=== PATIENT | male | born 1940 | race Caucasian/White ===

== ENCOUNTER 2025-06-07 17:45 | Inpatient (IN) | payer MEDICARE, OTHER ==
[~2025-06-07] VITALS: Ht 170.2 cm; Wt 75.7 kg
[2025-06-07] MEDS ORDERED: CRAN425C6 PO (18:40)
[2025-06-07] MEDS ORDERED: DABI150C PO (18:40)
[2025-06-07] MEDS ORDERED: DOCU100C36 PO (18:40)
[2025-06-07] MEDS ORDERED: DIVA125C5 PO (18:40)
[2025-06-07] MEDS ORDERED: FLUT16SP BNOSTRILS (18:40)
[2025-06-07] MEDS ORDERED: BISA10SU11 RC (18:40)
[2025-06-07] MEDS ORDERED: SENN-261 PO ×2 (18:40)
[2025-06-07] MEDS ORDERED: MULT-213 PO (18:40)
[2025-06-07] MEDS ORDERED: MAGN400O6 PO (18:40)
[2025-06-07] MEDS ORDERED: FURO20TA4 PO (18:40)
[2025-06-07] MEDS ORDERED: CHOL100062 PO (18:40)
[2025-06-07] MEDS ORDERED: INSU100V7 SQ (18:40)
[2025-06-07] MEDS ORDERED: POLY119P2 PO (18:40)
[2025-06-07] MEDS ORDERED: ACET325T53 PO (18:40)
[2025-06-07] MEDS ORDERED: INSU100V39 SQ ×2 (18:40)
[2025-06-07] MEDS ORDERED: METO25TA6 PO (18:40)
[2025-06-07] MEDS ORDERED: NA P133E RC (18:40)
[2025-06-07] MEDS ORDERED: ATOR80TA PO (18:40)
[2025-06-07] MEDS ORDERED: QUET25TA PO (18:40)
[2025-06-07] MEDS ORDERED: ASCO500T20 PO (18:40)
[2025-06-07 19:04] LABS: PLATELET COUNT (AUTO) 194 K/uL (150-450); RED BLOOD CELL COUNT(AUTO) 3.81 MIL/uL (4.5-6.0); RED CELL DISTRIBUTION WIDTH 16.3 % (11.5-15.0); WHITE BLOOD COUNT (AUTO) 8.4 K/uL (4.3-11.0)
[2025-06-07 19:19] LABS: CALCIUM, SERUM 9.6 mg/dL (8.5-10.1); CREATININE 1.3 mg/dL (0.6-1.3); SODIUM SERUM 142 mmol/L (136-145); UREA NITROGEN, BLOOD 32 mg/dL (7-18)
[2025-06-07 19:21] LABS: ASPARTATE AMINOTRANSFERASE 17 U/L (15-37); TOTAL PROTEIN, SERUM 7.1 g/dL (6.4-8.2)
[2025-06-07 19:22] LABS: ALCOHOL, BLOOD < 3 mg/dL (0-10)
[2025-06-07 19:45] LABS: APPEARANCE,URINE CLOUDY (CLEAR); BLOOD, URINE 1+ Ery/uL (NEGATIVE); LEUKOCYTE ESTERASE ,URINE 2+ (NEGATIVE); NITRITE, URINE POSITIVE (NEGATIVE); UGLUCOSE TRACE mg/dL (NEGATIVE)
[2025-06-07] MEDS: IV NS 0.9% 1,000 ML BAG IV ONE (19:49)
[2025-06-07 20:00] LABS: AMPHETAMINE, URINE NEGATIVE (NEGATIVE); BARBITURATE, URINE NEGATIVE (NEGATIVE); BENZODIAZEPINE, URINE NEGATIVE (NEGATIVE); CANNABINOID, URINE NEGATIVE (NEGATIVE); COCCAINE, URINE NEGATIVE (NEGATIVE); OPIATE, URINE NEGATIVE (NEGATIVE)
[2025-06-07 20:04] LABS: ADD URINE CULTURE YES; SQUAMOUS EPITHELIAL CELL,UR 0-2 /HPF (None Seen)
[2025-06-07] MEDS: CEFTRIAXONE 1GM BAG (ER ONLY) 1 GM/50 ML PIGGYBACK IV ONE (20:30)
[2025-06-07] MEDS ORDERED: CEFTRIAXONE 1 G VIAL ONE (20:55)
[2025-06-07 21:30] VITALS: BP 124/97; TEMP 97.5; O2SAT 98
[2025-06-07] MEDS ORDERED: ACETAMINOPHEN 325 MG TABLET PO PRN ×2 (21:30)
[2025-06-07] MEDS ORDERED: ONDANSETRON HCL/PF 4 MG/2 ML VIAL IVP PRN (21:30)
[2025-06-07] MEDS ORDERED: BISACODYL SUPP (10 MG) 10 MG/SUPP.RECT SUPP.RECT RC PRN (21:30)
[2025-06-07] MEDS ORDERED: MAGNESIUM HYDROXIDE 30 ML UDC PO PRN ×2 (21:30)
[2025-06-07] MEDS ORDERED: SENNOSIDES 8.6 MG TABLET PO PRN (21:30)
[2025-06-07] MEDS ORDERED: NA PHOS,M-B/NA PHOS,DI-BA 1 EA ENEMA RC PRN (21:30)
[2025-06-07] MEDS ORDERED: DEXTROSE 50%-WATER 50 ML DISP.SYRIN IV PRN (21:30)
[2025-06-07] MEDS ORDERED: ENOXAPARIN SODIUM 40 MG/0.4 ML DISP.SYRIN SQ SCH (21:30)
[2025-06-07] MEDS ORDERED: MAG HYDROX/AL HYDROX/SIMETH 30 ML UDC PO PRN (21:30)
[2025-06-07 21:45] VITALS: BP 124/97; TEMP 97.5; O2SAT 98
[2025-06-07] MEDS: ATORVASTATIN 40 MG TABLET PO SCH (22:18)
[2025-06-07] MEDS: SENNOSIDES 8.6 MG TABLET PO SCH (22:20)
[2025-06-07] MEDS: IV NS 0.9% 1,000 ML IV PRN (22:21)
[2025-06-07] MEDS: BLOOD SUGAR DIAGNOSTIC 1 EACH STRIP IN SCH (22:28)
[2025-06-07] MEDS ORDERED: POLYETHYLENE GLYCOL 3350 17 GM POWD.PACK PO PRN (22:30)
[2025-06-07] MEDS: INSULIN REGULAR, HUMAN 100 UNIT/ML 3 ML VIAL SQ PRN (23:05)
[2025-06-08] MEDS: DIVALPROEX SODIUM 125 MG CAP.SPRINK PO SCH (00:10)
[2025-06-08 07:52] LABS: PLATELET COUNT (AUTO) 169 K/uL (150-450); RED BLOOD CELL COUNT(AUTO) 3.65 MIL/uL (4.5-6.0); RED CELL DISTRIBUTION WIDTH 16.1 % (11.5-15.0); WHITE BLOOD COUNT (AUTO) 7.7 K/uL (4.3-11.0)
[2025-06-08 08:00] VITALS: BP 137/72; TEMP 97; O2SAT 100
[2025-06-08] MEDS: CHOLECALCIFEROL 1,000 UNIT TABLET (VIT D3) PO SCH (08:25)
[2025-06-08] MEDS: INSULIN LISPRO/ASPART 100 UNIT/ML CARTRIDGE SQ SCH (08:25)
[2025-06-08] MEDS: ASCORBIC ACID 500 MG TABLET PO SCH (08:25)
[2025-06-08] MEDS: QUETIAPINE FUMARATE 25 MG TABLET PO SCH ×2 (08:25→12:04)
[2025-06-08] MEDS: DOCUSATE SODIUM 100 MG CAPSULE PO SCH (08:25)
[2025-06-08] MEDS: PANTOPRAZOLE 40 MG TABLET.DR PO SCH (08:25)
[2025-06-08] MEDS: FUROSEMIDE 20 MG TABLET PO SCH (08:25)
[2025-06-08] MEDS: METOPROLOL TARTRATE 25 MG TABLET PO SCH (08:25)
[2025-06-08 08:26] LABS: CALCIUM, SERUM 9.3 mg/dL (8.5-10.1); CREATININE 0.9 mg/dL (0.6-1.3); PHOSPHORUS 3.3 mg/dL (2.5-4.9); SODIUM SERUM 141.0 mmol/L (136-145); UREA NITROGEN, BLOOD 27.0 mg/dL (7-18)
[2025-06-08] MEDS: MULTIVITAMINS,THERAGRAN 1 UDTAB TABLET PO SCH (08:26)
[2025-06-08] MEDS ORDERED: DABIGATRAN ETEXILATE MESYLATE 150 MG CAPSULE PO SCH (09:00)
[2025-06-08] MEDS: FLUTICASONE PROPIONATE 16 GM BOTTLE NS SCH (10:29)
[2025-06-08] MEDS: DABIGATRAN ETEXILATE MESYLATE 75 MG CAPSULE PO SCH (10:30)
[2025-06-08] MEDS ORDERED: LORAZEPAM 1 MG TABLET PO PRN (11:00)
[2025-06-08] MEDS ORDERED: OLANZAPINE 10 MG VIAL IM PRN (11:00)
[2025-06-08 16:00] VITALS: BP 117/52; TEMP 97.7; O2SAT 99
[2025-06-08 20:00] VITALS: BP 113/48; TEMP 98; O2SAT 98
[2025-06-08] MEDS: CEFTRIAXONE 1 G in IV D5W 50 ML IV SCH (21:45)
[2025-06-08] MEDS: INSULIN GLARGINE, 100 UNIT/ML CARTRIDGE SQ SCH (22:14)
[2025-06-09 07:15] LABS: CALCIUM, SERUM 9.7 mg/dL (8.5-10.1); CREATININE 1.0 mg/dL (0.6-1.3); SODIUM SERUM 142.0 mmol/L (136-145); UREA NITROGEN, BLOOD 21.0 mg/dL (7-18)
[2025-06-09 08:00] VITALS: BP 115/54; TEMP 97.9; O2SAT 97
[2025-06-09 16:00] VITALS: BP 108/52; TEMP 97.9; O2SAT 97
[2025-06-09 20:00] VITALS: BP 107/54; TEMP 97.7; O2SAT 98
[2025-06-10 08:00] VITALS: BP 117/56; TEMP 97.9; O2SAT 100
[2025-06-10 10:06] VITALS: BP 117/56
[2025-06-10] MEDS ORDERED: OLAN10VI IM (17:20)
[2025-06-10] MEDS ORDERED: LORA-259 PO (17:20)
[2025-06-10] MEDS ORDERED: MAG-135 PO (17:20)
[2025-06-10] MEDS ORDERED: DIVA-78 PO (17:20)
[2025-06-10] MEDS ORDERED: CEPH-570 PO (17:20)
[2025-06-10] MEDS ORDERED: DEXT50DI8 IV (17:20)
[2025-06-10] MEDS ORDERED: BLOO-668 IN (17:20)
[2025-06-10] MEDS ORDERED: INSU100V3 SQ (17:20)
[2025-06-10] MEDS ORDERED: ONDA4VIA52 IVP (17:20)
[2025-06-10] MEDS ORDERED: PANT40TA49 PO (17:20)
== END 2025-06-10 15:27 | DRG 689 ==
LOC: ER 18:00 → MED 20:57
PROVIDERS: ADMIT Nurse Practitioner Family; ATTEND Nurse Practitioner Family
DX: N39.0 Urinary tract infection, site not specified (principal); G93.41 Metabolic encephalopathy; E44.1 Mild protein-calorie malnutrition; D63.8 Anemia in other chronic diseases classified elsewhere; E88.09 Other disorders of plasma-protein metabolism, not elsewhere classified; N17.9 Acute kidney failure, unspecified; B96.4 Proteus (mirabilis) (morganii) as the cause of diseases classified elsewhere; F03.93 Unspecified dementia, unspecified severity, with mood disturbance; E11.9 Type 2 diabetes mellitus without complications; I10 Essential (primary) hypertension; F10.11 Alcohol abuse, in remission; F03.94 Unspecified dementia, unspecified severity, with anxiety; E86.0 Dehydration; H91.13 Presbycusis, bilateral; H91.93 Unspecified hearing loss, bilateral; Z79.4 Long term (current) use of insulin; Z79.899 Other long term (current) drug therapy; I25.10 Atherosclerotic heart disease of native coronary artery without angina pectoris; E78.5 Hyperlipidemia, unspecified; R79.89 Other specified abnormal findings of blood chemistry
CPT/HCPCS: 36415; 71045-TC; 80048-TC; 80076-TC; 80164-TC; 81001; 82962-TC; 83735-TC; 84100-TC; 85025-TC; 87081-TC; 87086-TC; 87186-TC; A4223; G0378; G0480; J0696; J1815; J7030; J7060

== ENCOUNTER 2025-06-10 15:15 | Inpatient (IN) | payer MEDICARE, OTHER ==
[~2025-06-10] VITALS: Ht 172.7 cm; Wt 72.6 kg
[~2025-06-10 15:15] MED LIST: ACET325T53 PO; ASCO500T20 PO; ATOR80TA PO; BISA10SU11 RC; CHOL100062 PO; CRAN425C6 PO; DABI150C PO; DIVA125C5 PO; DOCU100C36 PO; FLUT16SP BNOSTRILS; FURO20TA4 PO; INSU100V39 SQ; INSU100V7 SQ; MAGN400O6 PO; METO25TA6 PO; MULT-213 PO; NA P133E RC; POLY119P2 PO; QUET25TA PO; SENN-261 PO
[2025-06-10 16:00] VITALS: BP 113/59; TEMP 98; O2SAT 100
[2025-06-10 17:18] VITALS: BP 113/59; TEMP 98; O2SAT 100
[2025-06-10] MEDS ORDERED: BLOO-668 IN (17:20)
[2025-06-10] MEDS ORDERED: MAG-135 PO (17:20)
[2025-06-10] MEDS ORDERED: PANT40TA49 PO (17:20)
[2025-06-10] MEDS ORDERED: INSU100V3 SQ (17:20)
[2025-06-10] MEDS ORDERED: CEPH-570 PO (17:20)
[2025-06-10] MEDS ORDERED: LORA-259 PO (17:20)
[2025-06-10] MEDS ORDERED: DIVA-78 PO (17:20)
[2025-06-10] MEDS ORDERED: OLAN10VI IM (17:20)
[2025-06-10] MEDS ORDERED: DEXT50DI8 IV (17:20)
[2025-06-10] MEDS ORDERED: ONDA4VIA52 IVP (17:20)
[2025-06-10] MEDS ORDERED: MAGNESIUM HYDROXIDE 30 ML UDC PO PRN (17:30)
[2025-06-10] MEDS ORDERED: LORAZEPAM 0.5 MG TABLET PO PRN (17:30)
[2025-06-10] MEDS ORDERED: MAG HYDROX/AL HYDROX/SIMETH 30 ML UDC PO PRN (17:30)
[2025-06-10] MEDS ORDERED: TEMAZEPAM 7.5 MG CAPSULE PO PRN (17:30)
[2025-06-10] MEDS ORDERED: ACETAMINOPHEN 325 MG TABLET PO PRN (17:30)
[2025-06-10] MEDS: BLOOD SUGAR DIAGNOSTIC 1 EACH STRIP IN ONE (17:50)
[2025-06-10] MEDS: INSULIN GLARGINE, 100 UNIT/ML CARTRIDGE SQ SCH (18:00)
[2025-06-10] MEDS: DIVALPROEX SODIUM 500 MG TABLET.DR PO SCH (18:00)
[2025-06-10] MEDS ORDERED: INSULIN REGULAR, HUMAN 100 UNIT/ML 3 ML VIAL SQ PRN (18:00)
[2025-06-10] MEDS ORDERED: DEXTROSE 50%-WATER 50 ML DISP.SYRIN IV PRN (18:00)
[2025-06-10 20:50] VITALS: BP 117/59; TEMP 97.7; O2SAT 100
[2025-06-10] MEDS: ATORVASTATIN 40 MG TABLET PO SCH (21:25)
[2025-06-10] MEDS: CEPHALEXIN MONOHYDRATE 500 MG CAPSULE PO SCH (21:25)
[2025-06-10] MEDS: BLOOD SUGAR DIAGNOSTIC 1 EACH STRIP IN SCH (21:32)
[2025-06-10] MEDS: *INSULIN REGULAR(HUMULIN R)HUM 100 UNIT/ML VIAL SQ PRN (21:36)
[2025-06-11 08:00] VITALS: BP 139/98; TEMP 97.7; O2SAT 100
[2025-06-11] MEDS: CHOLECALCIFEROL 1,000 UNIT TABLET (VIT D3) PO SCH (08:48)
[2025-06-11] MEDS: DOCUSATE SODIUM LIQ 100 MG/10 ML UDC PO SCH (08:49)
[2025-06-11] MEDS: METOPROLOL TARTRATE 25 MG TABLET PO SCH (08:50)
[2025-06-11] MEDS: POLYETHYLENE GLYCOL 3350 17 GM POWD.PACK PO SCH (08:50)
[2025-06-11] MEDS: DABIGATRAN ETEXILATE MESYLATE 75 MG CAPSULE PO SCH (09:36)
[2025-06-11] MEDS: OLANZAPINE 10 MG VIAL IM ONE (11:00)
[2025-06-11] MEDS ORDERED: DEXTROSE 50%-WATER 50 ML DISP.SYRIN IV PRN (11:30)
[2025-06-11] MEDS: BLOOD SUGAR DIAGNOSTIC 1 EACH STRIP IN SCH (12:10)
[2025-06-11] MEDS: DIVALPROEX SODIUM 500 MG TABLET.DR PO SCH (12:11)
[2025-06-11] MEDS: INSULIN REGULAR, HUMAN 100 UNIT/ML 3 ML VIAL SQ PRN (12:12)
[2025-06-11 16:00] VITALS: BP 146/67; TEMP 98.1; O2SAT 99
[2025-06-11] MEDS: QUETIAPINE FUMARATE 25 MG TABLET PO SCH (16:59)
[2025-06-11 17:49] LABS: PLATELET COUNT (AUTO) 187 K/uL (150-450); RED BLOOD CELL COUNT(AUTO) 3.82 MIL/uL (4.5-6.0); RED CELL DISTRIBUTION WIDTH 15.5 % (11.5-15.0); WHITE BLOOD COUNT (AUTO) 8.3 K/uL (4.3-11.0)
[2025-06-11 18:19] LABS: ASPARTATE AMINOTRANSFERASE 15.0 U/L (15-37); CALCIUM, SERUM 9.8 mg/dL (8.5-10.1); CREATININE 1.0 mg/dL (0.6-1.3); PHOSPHORUS 3.1 mg/dL (2.5-4.9); SODIUM SERUM 139.0 mmol/L (136-145); TOTAL PROTEIN, SERUM 6.9 g/dL (6.4-8.2); UREA NITROGEN, BLOOD 24.0 mg/dL (7-18)
[2025-06-11 19:05] LABS: LDL 45 mg/dL (0-99)
[2025-06-11 21:07] VITALS: BP 126/74; TEMP 98.6; O2SAT 98
[2025-06-11] MEDS: QUETIAPINE FUMARATE 100 MG TABLET PO SCH (21:19)
[2025-06-12 08:00] VITALS: BP 117/86; TEMP 98.6; O2SAT 100
[2025-06-12 16:00] VITALS: BP 103/50; TEMP 98.8; O2SAT 100
[2025-06-12 21:03] VITALS: BP 125/51; TEMP 97.9; O2SAT 97
[2025-06-13 08:00] VITALS: BP 128/67; TEMP 98.1; O2SAT 98
[2025-06-13 14:00] VITALS: BP 92/65; TEMP 98.1; O2SAT 98
[2025-06-13 16:00] VITALS: BP 128/69; TEMP 97.1; O2SAT 96
[2025-06-13] MEDS: QUETIAPINE FUMARATE 25 MG TABLET PO SCH (22:00)
[2025-06-14 08:00] VITALS: BP 125/58; TEMP 97.8; O2SAT 99
[2025-06-14] MEDS: Z GUARD REMEDY 4 OZ OINT TP SCH (09:48)
[2025-06-14] MEDS: DIVALPROEX SODIUM 125 MG CAP.SPRINK PO SCH (13:00)
[2025-06-14 16:06] VITALS: BP 111/57; TEMP 97.7; O2SAT 98
[2025-06-14 20:52] VITALS: BP 130/62; TEMP 97.8; O2SAT 98
[2025-06-15 08:00] VITALS: BP 121/60; TEMP 97.5; O2SAT 96
[2025-06-15 16:00] VITALS: BP 116/54; TEMP 97.7; O2SAT 98
[2025-06-15 21:03] VITALS: BP 114/70; TEMP 98.2; O2SAT 98
[2025-06-16 07:48] VITALS: BP 141/64; TEMP 97.8; O2SAT 99
[2025-06-16 15:40] VITALS: BP 112/59; TEMP 97.5; O2SAT 99
[2025-06-16 20:08] VITALS: BP 108/63; TEMP 97.6; O2SAT 100
[2025-06-16] MEDS: QUETIAPINE FUMARATE 100 MG TABLET PO SCH (21:10)
[2025-06-17 08:00] VITALS: BP 142/58; TEMP 97.7; O2SAT 100
[2025-06-17] MEDS: DIVALPROEX SODIUM 500 MG TABLET.DR PO SCH (12:50)
[2025-06-17 16:00] VITALS: BP 111/55; TEMP 97.8; O2SAT 99
[2025-06-17 19:58] VITALS: BP 115/57; TEMP 97.5; O2SAT 98
[2025-06-18 08:00] VITALS: BP 102/73; TEMP 97.9; O2SAT 97
[2025-06-18 16:00] VITALS: BP 122/62; TEMP 98.1; O2SAT 99
[2025-06-18 20:57] VITALS: BP 110/56; TEMP 97.6; O2SAT 99
[2025-06-19 07:53] VITALS: BP 113/66; TEMP 97.7; O2SAT 97
[2025-06-19 16:00] VITALS: BP 107/54; TEMP 98.1; O2SAT 100
[2025-06-19 20:00] VITALS: BP 117/55; TEMP 97.5; O2SAT 100
[2025-06-20 08:00] VITALS: BP 121/57; TEMP 97.9; O2SAT 97
[2025-06-20 16:00] VITALS: BP 115/50; TEMP 97.5; O2SAT 100
[2025-06-20 20:20] VITALS: BP 108/52; TEMP 97.8; O2SAT 99
[2025-06-21 08:00] VITALS: BP 128/62; TEMP 97.7; O2SAT 100
[2025-06-21 16:00] VITALS: BP 108/54; TEMP 97.5; O2SAT 100
[2025-06-21 22:03] VITALS: BP 110/55; TEMP 97.7; O2SAT 97
[2025-06-22] MEDS: GUAIFENESIN/D-METHORPHAN HB 5 ML UDC PO PRN (01:59)
[2025-06-22 07:59] VITALS: BP 121/55; TEMP 98.6; O2SAT 97
[2025-06-22 15:55] VITALS: BP 123/56; TEMP 98.8; O2SAT 99
[2025-06-22 16:35] VITALS: BP 121/60
[2025-06-22 20:24] VITALS: BP 109/50; TEMP 98.1; O2SAT 97
[2025-06-23 08:00] VITALS: BP 117/62; TEMP 97.8; O2SAT 98
[2025-06-23 16:00] VITALS: BP 117/50; TEMP 97.8; O2SAT 100
[2025-06-23 20:00] VITALS: BP 118/55; TEMP 98.1; O2SAT 99
[2025-06-23 21:32] VITALS: BP 105/68; TEMP 98; O2SAT 97
[2025-06-24 08:00] VITALS: BP 132/59; TEMP 98.1; O2SAT 100
[2025-06-24 16:00] VITALS: BP 121/49; TEMP 98; O2SAT 100
[2025-06-24 20:25] VITALS: BP 130/46; TEMP 98.2; O2SAT 99
[2025-06-25 08:00] VITALS: BP 120/60; TEMP 98.1; O2SAT 96
[2025-06-25 09:05] VITALS: BP 120/60
== END 2025-06-25 14:25 | DRG 885 ==
LOC: GPS 15:15
PROVIDERS: ADMIT Psychiatry & Neurology Psychosomatic Medicine; ATTEND Internal Medicine
DX: F20.9 Schizophrenia, unspecified (principal); N17.9 Acute kidney failure, unspecified; E11.65 Type 2 diabetes mellitus with hyperglycemia; G92.8 Other toxic encephalopathy; F03.92 Unspecified dementia, unspecified severity, with psychotic disturbance; F29 Unspecified psychosis not due to a substance or known physiological condition; D63.8 Anemia in other chronic diseases classified elsewhere; B96.4 Proteus (mirabilis) (morganii) as the cause of diseases classified elsewhere; N39.0 Urinary tract infection, site not specified; I10 Essential (primary) hypertension; F03.93 Unspecified dementia, unspecified severity, with mood disturbance; E78.5 Hyperlipidemia, unspecified; I25.10 Atherosclerotic heart disease of native coronary artery without angina pectoris; H91.13 Presbycusis, bilateral; F39 Unspecified mood [affective] disorder; Z79.4 Long term (current) use of insulin
CPT/HCPCS: 36415; 71045-TC; 80053-TC; 80061-TC; 82962-TC; 83735-TC; 84100-TC; 85025-TC; 97110-TC; 97116-TC; 97530-TC; J1815; J3490